=== PATIENT | male | born 1990 | race Caucasian/White ===

== ENCOUNTER 2017-06-17 15:27 | Emergency (ER) | payer OTHER ==
[2017-06-17] MEDS ORDERED: CEFAZOLIN 330 MG/ML IM SYRINGE IM ONE (16:10)
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
[2017-06-17] MEDS ORDERED: ceFAZolin 2 GM/DEXTROSE 100 ML IV ONE (16:21)
[2017-06-17] MEDS ORDERED: ceFAZolin 2 GM/SWFI 2 GM/20 ML SYR IVP ONE (17:00)
[2017-06-17 17:21] VITALS: BP 138/72
== END 2017-06-17 17:21 | disposition home or self-care (01) ==
PROC: 0CQ0XZZ Repair Upper Lip, External Approach (ICD-10-PCS; principal; 2017-06-17)
DX: S01.511A Laceration without foreign body of lip, initial encounter (principal); S01.81XA Laceration without foreign body of other part of head, initial encounter; F17.210 Nicotine dependence, cigarettes, uncomplicated; W22.09XA Striking against other stationary object, initial encounter; Y92.410 Unspecified street and highway as the place of occurrence of the external cause; Y99.8 Other external cause status; Y93.01 Activity, walking, marching and hiking
CPT/HCPCS: 96374; J0690